=== PATIENT | female | born 1950 | race Caucasian/White ===

== ENCOUNTER 2017-07-17 10:23 | Outpatient (CLI) | payer MEDICARE, MEDICAID ==
[2017-07-17 10:46] VITALS: BP 112/55
[2017-07-17] MEDS ORDERED: CEPACOL SORE T1 EAC5 MM (11:27)
[2017-07-17] MEDS ORDERED: TEMAZEPAM15 MG ORAL (11:27)
[2017-07-17] MEDS ORDERED: IBUPROFEN600 MG ORAL (11:27)
[2017-07-17] MEDS ORDERED: ACETAMINOPHEN325 M1 ORAL (11:27)
[2017-07-17] MEDS ORDERED: CRANBERRY450 M3 PO (11:27)
[2017-07-17] MEDS ORDERED: MILK OF MA2400 MG/10 ORAL (11:27)
[2017-07-17] MEDS ORDERED: GABAPENTIN300 MG ORAL (11:27)
[2017-07-17] MEDS ORDERED: LOSARTAN POTASS25 M1 PO (11:27)
[2017-07-17] MEDS ORDERED: IMODIUM2 MG ORAL (11:27)
[2017-07-17] MEDS ORDERED: HUMALOG100 UNIT/4 SUBQ (11:27)
[2017-07-17] MEDS ORDERED: CYCLOBENZAPRINE10 MG ORAL (11:27)
[2017-07-17] MEDS ORDERED: OXYCODONE-ACET1 EAC3 ORAL (11:27)
[2017-07-17] MEDS ORDERED: GERI-MOX ANTAC355 ML PO (11:27)
[2017-07-17] MEDS ORDERED: VENTOLIN HFA18 GM INH (11:27)
[2017-07-17] MEDS ORDERED: HIBICLENS118 ML TP (11:27)
[2017-07-17] MEDS ORDERED: CYMBALTA30 MG ORAL (11:27)
--- NOTE | 2017-07-17 11:27 | GI Initial Consult Note ---
Booker,Hazel Mario N.PNohemi 07/17/17 1127: History of Present Illness General Date patient seen: Jul 17, 2017 Time patient seen: 11:14 Referring physician: ROSSI VIEIRA Reason for Consultation: CHRONIC DIARRHEA Present Illness HPI 67 year old female patient referred by Dr. Vieira for evaluation of chronic diarrhea. Possible history of ?IBS, last colonoscopy over 20 years ago. States she had a recent EGD which was unremarkable. She presents today with diarrhea with no relief from Imodium. States Lomotil has helped in the past, but unable to get at this moment. Denies any unintentional weight loss or changes in dietary habits. No signs of abuse or neglect. Patient is fall risk. Home Meds Reported Medications Albuterol Sulfate (VENTOLIN HFA) 18 Gm Hfa.aer.ad, 2 PUFFS INH EVERY 6 HOURS, # 18 GM 0 Refills 07/17/17 Temazepam (TEMAZEPAM*) 15 Mg Capsule, 15 MG ORAL BEDTIME, #30 CAP 0 Refills 07/17/17 Oxycodone Hcl/Acetaminophen 5-325* (OXYCODONE-ACETAMINOPHEN 5-325*) 1 Each Tablet, 1 TAB ORAL Q4H Y, TAB 0 Refills 07/17/17 Magnesium Hydroxide/Al Hydrox (RENE-MOX ANTACID SUSPENSION) 355 Ml Oral.susp, 355 ML PO, ML 07/17/17 Magnesium Hydroxide* (MILK OF MAGNESIA*) 2,400 Mg/10 Ml Oral.susp, 30 ML ORAL DAILY, ML 07/17/17 Losartan Potassium (Losartan Potassium) 25 Mg Tablet, 25 MG PO, TAB 07/17/17 Loperamide HCl (Loperamide) 2 Mg Capsule, 2 MG ORAL Q4H, #20 CAP 0 Refills 07/17/17 Ibuprofen* (MOTRIN*) Unknown Strength Tablet, ORAL FOUR TIMES A DAY, #30 TAB 0 Refills 07/17/17 Insulin Lispro (HUMALOG) 100 Unit/1 Ml Cartridge, 0 SUBQ, #1 UNITS 0 Refills 07/17/17 Gabapentin* (GABAPENTIN*) 300 Mg Capsule, 300 MG ORAL THREE TIMES A DAY, CAP 0 Refills 07/17/17 Duloxetine Hcl* (CYMBALTA*) 30 Mg Capsule.dr, 30 MG ORAL DAILY, CAP 07/17/17 Cyclobenzaprine Hcl* (FLEXERIL*) 10 Mg Tablet, 10 MG ORAL THREE TIMES A DAY, TAB 07/17/17 Cranberry Fruit Concentrate (CRANBERRY) 450 Mg Tablet, 450 MG PO, TAB 07/17/17 Chlorhexidine Gluconate* (HIBICLENS*) Unknown Strength Liquid, TP, ML 07/17/17 Benzocaine/Menthol (CEPACOL SORE THROAT LOZENGE) 1 Each Lozenge, 1 EACH MM, LOZENGE 07/17/17 Acetaminophen* (ACETAMINOPHEN 325MG TABLET*) 325 Mg Tablet, 325 MG ORAL Q4H Y, TAB 07/17/17 Allergies: Coded Allergies: No Known Allergies (Unverified , 07/17/17) Patient History History Provided By: Patient, Medical Record PMH Narrative IBS spinal stenosis >> s/p fall with spinal injury, currently using halo DM >> currently on no DM meds CAD? UTI Kidney stones Depression Cataract COPD HTN Past Surgical History: Cholecystectomy Spinal surgery hysterectomy Family History Narrative Father >> colon CA mother >> COPD Social History: Reports: smoking - 10/day Review of Systems All Other Systems: negative except mentioned in HPI Physical Exam Vital Signs Date Time Temp Pulse Resp B/P (MAP) Pulse Ox O2 Delivery O2 Flow Rate FiO2 07/17/17 10:46 97.7 70 16 112/55 93 Sp02 EP Interpretation: reviewed, normal General Appearance: well appearing, no apparent distress, alert Head: normocephalic EENT: PERRL/EOMI, normal ENT inspection Neck: supple Respiratory: normal breath sounds, no respiratory distress Cardiovascular: normal rate Gastrointestinal: normal inspection, non tender, soft, normal bowel sounds, non -distended Rectal: deferred Genitourinary: no CVA tenderness Musculoskeletal: other - generalized weakness, s/p fall with spinal injury Neurologic: normal inspection, alert, oriented x3, responsive Psychiatric: normal inspection, judgement/insight normal, memory normal Skin: normal inspection, normal color, no rash, warm/dry, palpation normal, well hydrated Lymphatic: normal inspection, no adenopathy GI: Plan Problems: (1) History of IBS (2) Spinal stenosis (3) Depression (4) CAD (coronary artery disease) (5) Cataract (6) COPD (chronic obstructive pulmonary disease) (7) HTN (hypertension) (8) Colonoscopy planned Plan Colonoscopy scheduled 07/30/17. - CLD & (Nulytely/Suprep/Movi-Prep) prep instructions given and acknowledged by patient. - NPO @ HI day prior procedure explained. Seen with Dr. Lainez. Thank you for this patient referral. CHRISTAELOISESANDIIzaRADHAD 07/18/17 1014: History of Present Illness Present Illness Home Meds Reported Medications Albuterol Sulfate (VENTOLIN HFA) 18 Gm Hfa.aer.ad, 2 PUFFS INH EVERY 6 HOURS, # 18 GM 0 Refills 07/17/17 Temazepam (TEMAZEPAM*) 15 Mg Capsule, 15 MG ORAL BEDTIME, #30 CAP 0 Refills 07/17/17 Oxycodone Hcl/Acetaminophen 5-325* (OXYCODONE-ACETAMINOPHEN 5-325*) 1 Each Tablet, 1 TAB ORAL Q4H Y, TAB 0 Refills 07/17/17 Magnesium Hydroxide/Al Hydrox (RENE-MOX ANTACID SUSPENSION) 355 Ml Oral.susp, 355 ML PO, ML 07/17/17 Magnesium Hydroxide* (MILK OF MAGNESIA*) 2,400 Mg/10 Ml Oral.susp, 30 ML ORAL DAILY, ML 07/17/17 Losartan Potassium (Losartan Potassium) 25 Mg Tablet, 25 MG PO, TAB 07/17/17 Loperamide HCl (Loperamide) 2 Mg Capsule, 2 MG ORAL Q4H, #20 CAP 0 Refills 07/17/17 Ibuprofen* (MOTRIN*) Unknown Strength Tablet, ORAL FOUR TIMES A DAY, #30 TAB 0 Refills 07/17/17 Insulin Lispro (HUMALOG) 100 Unit/1 Ml Cartridge, 0 SUBQ, #1 UNITS 0 Refills 07/17/17 Gabapentin* (GABAPENTIN*) 300 Mg Capsule, 300 MG ORAL THREE TIMES A DAY, CAP 0 Refills 07/17/17 Duloxetine Hcl* (CYMBALTA*) 30 Mg Capsule.dr, 30 MG ORAL DAILY, CAP 07/17/17 Cyclobenzaprine Hcl* (FLEXERIL*) 10 Mg Tablet, 10 MG ORAL THREE TIMES A DAY, TAB 07/17/17 Cranberry Fruit Concentrate (CRANBERRY) 450 Mg Tablet, 450 MG PO, TAB 07/17/17 Chlorhexidine Gluconate* (HIBICLENS*) Unknown Strength Liquid, TP, ML 07/17/17 Benzocaine/Menthol (CEPACOL SORE THROAT LOZENGE) 1 Each Lozenge, 1 EACH MM, LOZENGE 07/17/17 Acetaminophen* (ACETAMINOPHEN 325MG TABLET*) 325 Mg Tablet, 325 MG ORAL Q4H Y, TAB 07/17/17 Allergies: Coded Allergies: No Known Allergies (Unverified , 07/17/17) GI: Plan Plan The patient was seen and examined at bedside and all new and available data was reviewed in the patients chart. I agree with the above findings, impression and plan. (Patient seen earlier today. Signature stamp does not reflect patient encounter time.). - [facility] Mario N.PNohemi Jul 17, 2017 11:27 SHILPA LAINEZ Jul 18, 2017 10:14
== END 2017-07-17 11:05 | disposition home or self-care (01) ==
LOC: PAN 10:23
DX: R19.7 Diarrhea, unspecified (principal); K58.9 Irritable bowel syndrome, unspecified; M48.00 Spinal stenosis, site unspecified; F32.9 Major depressive disorder, single episode, unspecified; I25.10 Atherosclerotic heart disease of native coronary artery without angina pectoris; H26.9 Unspecified cataract; J44.9 Chronic obstructive pulmonary disease, unspecified; I10 Essential (primary) hypertension; Z91.81 History of falling; Z87.442 Personal history of urinary calculi; Z90.710 Acquired absence of both cervix and uterus; Z90.49 Acquired absence of other specified parts of digestive tract; F17.210 Nicotine dependence, cigarettes, uncomplicated; Z80.0 Family history of malignant neoplasm of digestive organs
CPT/HCPCS: 99201

== ENCOUNTER 2017-08-01 08:39 | Day surgery (SDC) | payer MEDICARE, MEDICAID ==
[~2017-08-01] VITALS: Ht 162.6 cm; Wt 61.2 kg
[2017-08-01] VITALS (8 sets, daily range): BP systolic 122–130; BP diastolic 44–75
[~2017-08-01 08:39] MED LIST: ACETAMINOPHEN325 M1 ORAL; CEPACOL SORE T1 EAC5 MM; CRANBERRY450 M3 PO; CYCLOBENZAPRINE10 MG ORAL; CYMBALTA30 MG ORAL; GABAPENTIN300 MG ORAL; GERI-MOX ANTAC355 ML PO; HIBICLENS118 ML TP; HUMALOG100 UNIT/4 SUBQ; IBUPROFEN600 MG ORAL; IMODIUM2 MG ORAL; LOSARTAN POTASS25 M1 PO; MILK OF MA2400 MG/10 ORAL; OXYCODONE-ACET1 EAC3 ORAL; TEMAZEPAM15 MG ORAL; VENTOLIN HFA18 GM INH
--- NOTE | 2017-08-01 09:01 | Short Stay Surgery H&P ---
History of Present Illness History of Present Illness Chief Complaint SEE RECENT CONSULT NOTE HPI Colette Monroe is a 67 year old female who was admitted on for Hx Ebs Patient History Allergies: Coded Allergies: No Known Allergies (Unverified , 07/17/17) PAST MEDICAL HISTORY: Past Surgeries: Social History: Medication History Scheduled Albuterol Sulfate (Ventolin Hfa), 2 PUFFS INH EVERY 6 HOURS, (Reported) Cyclobenzaprine Hcl* (Flexeril*), 10 MG ORAL THREE TIMES A DAY, (Reported) Duloxetine Hcl* (Cymbalta*), 30 MG ORAL DAILY, (Reported) Gabapentin* (Gabapentin*), 300 MG ORAL THREE TIMES A DAY, (Reported) Ibuprofen* (Motrin*), Unknown Dose ORAL FOUR TIMES A DAY, (Reported) Loperamide HCl (Loperamide), 2 MG ORAL Q4H, (Reported) Magnesium Hydroxide* (Milk Of Magnesia*), 30 ML ORAL DAILY, (Reported) Temazepam (Temazepam*), 15 MG ORAL BEDTIME, (Reported) Scheduled PRN Acetaminophen* (Acetaminophen 325MG Tablet*), 325 MG ORAL Q4H PRN, (Reported) Oxycodone Hcl/Acetaminophen 5-325* (Oxycodone-Acetaminophen 5-325*), 1 TAB ORAL Q4H PRN, (Reported) Miscellaneous Medications Benzocaine/Menthol (Cepacol Sore Throat Lozenge), 1 EACH MM, (Reported) Chlorhexidine Gluconate* (Hibiclens*), Unknown Dose TP, (Reported) Cranberry Fruit Concentrate (Cranberry), 450 MG PO, (Reported) Insulin Lispro (Humalog), 0 SUBQ, (Reported) Losartan Potassium (Losartan Potassium), 25 MG PO, (Reported) Magnesium Hydroxide/Al Hydrox (Whit-Mox Antacid Suspension), 355 ML PO, ( Reported) Plan Attestation Are the patient's medical conditions optimized for surgery? SHILPA LAINEZ Aug 01, 2017 09:01
--- NOTE | 2017-08-01 09:01 | Pre-Procedure Note/Attestation ---
Pre-Procedure Note/Attestation Complete Prior to Procedure Planned Procedure: not applicable Procedure Narrative: COLONOSCOPY Indications for Procedure Pre-Operative Diagnosis: SCREENING Attestation I attest that I discussed the nature of the procedure; its benefits; risks and complications; and alternatives (and the risks and benefits of such alternatives ), prior to the procedure, with the patient (or the patient's legal authorization representative). I attest that, if there was a reasonable possibility of needing a blood transfusion, the patient (or the patient's legal authorization representative) was given the [facility] standardized written summary, pursuant to the [place] Blood Safety Act ([place] Health and Safety Code # 1645, as amended). I attest that I re-evaluated the patient just prior to the surgery and that there has been no change in the patient's H&P, except as documented below: SHILPA LAINEZ Aug 01, 2017 09:01
--- NOTE | 2017-08-01 09:26 | Anethesia Preoperative Eval ---
Anesthesia Pre-op PMH/ROS General Date of Evaluation: Aug 01, 2017 Time of Evaluation: 09:14 Anesthesiologist: allison ASA Score: ASA 3 Mallampati Score Class I : Soft palate, uvula, fauces, pillars visible Class II: Soft palate, uvula, fauces visible Class III: Soft palate, base of uvula visible Class IV: Only hard plate visible Mallampati Classification: Class II Surgeon: juan Diagnosis: colon screening Surgical Procedure: colonoscopy Anesthesia History: none Social History: current smoker Family History: no anesthesia problems Allergies: Coded Allergies: No Known Allergies (Unverified , 07/17/17) Medications: see eMAR Past Medical History Cardiovascular: Reports: HTN, CAD Pulmonary: Reports: COPD Gastrointestinal/Genitourinary: Reports: other - ibs Neurologic/Psychiatric: Reports: depression/anxiety HEENT: Reports: cataract (L), cataract (R) Anesthesia Pre-op Phys. Exam Physician Exam Constitutional: NAD Neurologic: CN 2-12 intact Cardiovascular: RRR Respiratory: CTA Gastrointestinal: S/NT/ND Airway Exam Mallampati Score: Class II Neck: supple TMD: 2fb ROM: full Anesthesia Pre-op A/P Studies Pre-op Studies: EKG - atrial paced rhythm patient denies Risk Assessment & Plan Assessment: asa3 Plan: mac Status Change Before Surgery: No Pre-Antibiotics Drug: STU Chávez Aug 01, 2017 09:25
[2017-08-01] MEDS ORDERED: Lidocaine 1% MPF 10mg/ml 5ml ONE (09:30)
[2017-08-01] MEDS ORDERED: Atropine Inj 1mg/10ml Syr IV PRN (09:30)
[2017-08-01] MEDS ORDERED: DiphenhydrAMINE 50mg/ml Inj IVP PRN (09:30)
[2017-08-01] MEDS ORDERED: Propofol 200mg/20ml IV ONE (09:30)
[2017-08-01] MEDS ORDERED: fentaNYL 100 mcg/2 mL IV PRN (09:30)
[2017-08-01] MEDS ORDERED: Midazolam 2mg/2ml Inj IVP PRN (09:30)
[2017-08-01] MEDS ORDERED: MYLANTA DS PO (09:42)
--- NOTE | 2017-08-01 10:10 | Endoscopy Procedure Note ---
Endoscopy Procedure Note Indication for Procedure: diarrhea Procedures Performed: colonoscopy Operative Findings/Diagnosis: one polyp Specimen: yes Pt Tolerated Procedure Well: Yes Estimated Blood Loss: none Anesthesiologist: jean pierre Anesthesia: MAC Implant(s) used?: No 50 yrs or older w/o bx or poly: No 10yrs. F/U not recommended: Yes If not recommended, why?: Above average risk 10 yrs. F/U needed: Yes 18 years or older w/prev. colo: No SHILPA LAINEZ Aug 01, 2017 10:10
--- NOTE | 2017-08-01 11:53 | Immediate Post-Op Evaluation ---
Immediate Post-Op Evalulation Immediate Post-Op Evalulation Procedure: colonoscopy Date of Evaluation: Aug 01, 2017 Time of Evaluation: 10:26 IV Fluids: 150ml 0.9ns Blood Products: none Estimated Blood Loss: negligible Blood Pressure Systolic: 125 Blood Pressure Diastolic: 53 Pulse Rate: 73 Respiratory Rate: 18 O2 Sat by Pulse Oximetry: 98 Temperature (Fahrenheit): 98.8 Pain Score (1-10): 0 Nausea: No Vomiting: No Complications none Patient Status: awake, reacts, patent Hydration Status: adequate Drug: STU Chávez Aug 01, 2017 11:53
--- NOTE | 2017-08-01 11:54 | 48 Hour Post Anesthesia Eval ---
Post Anesthesia Evaluation Procedure: colonoscopy Date of Evaluation: Aug 01, 2017 Time of Evaluation: 10:28 Blood Pressure Systolic: 122 0: 55 Pulse Rate: 77 Respiratory Rate: 18 Temperature (Fahrenheit): 98.8 O2 Sat by Pulse Oximetry: 99 Airway: patent Nausea: No Vomiting: No Pain Intensity: 0 Hydration Status: adequate Cardiopulmonary Status: stable Mental Status/LOC: patient returned to baseline Post-Anesthesia Complications: none Follow-up care needed: N/A STU VINCENT Aug 01, 2017 11:54
--- NOTE | 2017-08-01 16:15 | Procedure Note ---
DATE OF PROCEDURE: 08/01/2017 SURGEON: Marcio Hinton M.D. PROCEDURE: Colonoscopy with biopsy. ANESTHESIA: Per Dr. Jackson. INSTRUMENT: Olympus adult flexible colonoscope. INDICATION: Diarrhea and screening colonoscopy. The procedure, risks, benefits, and possible consequences, including hemorrhage, aspiration, perforation and infection, and alternative treatments, were explained to the patient/legal guardian by Dr. Marcio Hinton and the patient/legal guardian understood and accepted these risks. DESCRIPTION OF PROCEDURE: After informed consent was obtained and the patient was adequately sedated, first rectal exam was performed, which was normal. Then, the scope was advanced from rectum into the cecum documented by the appendiceal orifice, ileocecal valve, and right upper quadrant palpation. Quality of prep was good. The patient had normal colonoscopic examination. Random biopsy from the right and left colon was obtained to rule out microscopic colitis. In the rectum, there was a diminutive polyp, removed with the cold biopsy forceps technique. Retroflexion in the rectum showed evidence of internal hemorrhoids. SUMMARY FINDINGS: 1. Internal hemorrhoids. 2. One diminutive polyp removed from the rectum. RECOMMENDATIONS: Follow up biopsies and treat accordingly. Marcio Hinton M.D. DR: MATTHEW JOB#: [id number] CC:
--- NOTE | 2017-08-02 11:03 | Cardiology Report ---
APPROVED REPORT EKG Measurement Heart [id number] NSR with premature vntricular complexes. Abnormal ECG
== END 2017-08-01 11:10 | disposition home or self-care (01) ==
LOC: GAS 08:39
DX: Z12.11 Encounter for screening for malignant neoplasm of colon (principal); K64.8 Other hemorrhoids; K63.5 Polyp of colon; F17.200 Nicotine dependence, unspecified, uncomplicated; I10 Essential (primary) hypertension; I25.10 Atherosclerotic heart disease of native coronary artery without angina pectoris; J44.9 Chronic obstructive pulmonary disease, unspecified; F32.9 Major depressive disorder, single episode, unspecified; F41.9 Anxiety disorder, unspecified; K58.9 Irritable bowel syndrome, unspecified
CPT/HCPCS: 45380; 82962; 93005; J2704; J3010; 94003; 94150